=== PATIENT | female | born 1945 | race Caucasian/White ===

== ENCOUNTER → 2020-07-07 | Outpatient (CLI) | payer OTHER ==
[~2020-07-07] MED LIST: ASCO100018 PO; CETI-158 PO; CHOL500015 PO; CICL15CR3 TP; CLOB15OI TP; DABI150C PO; ESTR42.53 VG; EZET10TA70 PO; FENO48TA16 PO; GLUC1CAP18 PO; GLUC1TAB33 PO; LACT1CAP35 PO; LEVO125T PO; LISI-167 PO; MAX PO; METF10002 PO; METH500T5 PO; MULT-658 PO; NAPR-685 PO; VIT1CAPS42 PO; [UNRECOGNIZED DRUG - OTHER] PEG; [UNRECOGNIZED DRUG - OTHER] PO; [UNRECOGNIZED DRUG - OTHER] PO
== END | disposition home or self-care (01) ==
LOC: CVU 15:44
PROVIDERS: ATTEND Internal Medicine Interventional Cardiology
DX: I08.8 Other rheumatic multiple valve diseases (principal); I48.91 Unspecified atrial fibrillation; Z79.01 Long term (current) use of anticoagulants
CPT/HCPCS: 93306

== ENCOUNTER → 2020-08-17 | Outpatient (CLI) | payer OTHER ==
[~2020-08-17] MED LIST changes: +APIX5TAB PO; +CARV6.2512 PO; +LOSA50TA14 PO
== END | disposition home or self-care (01) ==
LOC: CFH 13:29
PROVIDERS: ATTEND Specialist
DX: Z12.31 Encounter for screening mammogram for malignant neoplasm of breast (principal)
CPT/HCPCS: 77067

== ENCOUNTER 2020-09-01 09:57 | Day surgery (SDC) | payer OTHER ==
[~2020-09-01] VITALS: Ht 163.8 cm; Wt 65.9 kg
[2020-09-01] MEDS ORDERED: SODIUM CHLORIDE 0.9% 1,000 ML IV SCH ×2 (10:30→12:30)
[2020-09-01] MEDS ORDERED: CRAN1CAP12 PO (10:36)
[2020-09-01] MEDS ORDERED: CHOL10003 PO (10:36)
[2020-09-01] MEDS ORDERED: CALC100T2 PO (10:36)
[2020-09-01] MEDS ORDERED: UBID100C41 PO (10:36)
[2020-09-01 10:41] VITALS: BP 129/72
[2020-09-01 10:56] LABS: BASOPHILS % (AUTO) 1 % (0-1); EOSINOPHILS % (AUTO) 5 % (1-7); LYMPHOCYTES % (AUTO) 20 % (22-44); MEAN CORPUSCULAR HEMOGLOBIN 30.6 pg (27.0-34.8); MEAN CORPUSCULAR HGB CONC 33.9 g/dL (32.4-35.8); MEAN PLATELET VOLUME 7.9 fL (7.4-10.4); MONOCYTES % (AUTO) 7 % (2-9); NEUTROPHILS % (AUTO) 68 % (42-75); PLATELET COUNT 235 x10^3/uL (130-400); RED BLOOD COUNT 3.89 x10^6/uL (3.82-5.3); RED CELL DISTRIBUTION WIDTH 15.2 % (9.6-15.2)
[2020-09-01 11:00] LABS: MD NO
[2020-09-01] MEDS ORDERED: PLEASE ENTER HEIGHT AND WEIGHT MC SCH (11:00)
[2020-09-01 11:07] LABS: ANION GAP 7 mmol/L (5-15); CALCIUM 8.5 mg/dL (8.5-10.1); CHLORIDE 104 mmol/L (98-107); CREATININE 0.53 mg/dL (0.55-1.02)
[2020-09-01] MEDS ORDERED: MIDAZOLAM 1 MG/ML, 5ML ONE (11:26)
[2020-09-01] MEDS ORDERED: TICAGRELOR 90 MG TABLET ONE (11:26)
[2020-09-01] MEDS ORDERED: FENTANYL PF 100 MCG/2ML ONE (11:26)
[2020-09-01] MEDS ORDERED: HEPARIN 1,000 UNITS/ML, 10ML ONE (11:27)
[2020-09-01] MEDS ORDERED: BIVALIRUDIN 250 MG ONE (11:27)
[2020-09-01] MEDS ORDERED: LIDOCAINE-MPF 1%, 5ML ONE (11:27)
[2020-09-01] MEDS ORDERED: VERAPAMIL 2.5 MG/ML, 2ML ONE (11:27)
[2020-09-01] MEDS ORDERED: NITROGLYCERIN 5 MG/ML, 10ML ONE (11:32)
== END 2020-09-01 14:42 | disposition home or self-care (01) ==
LOC: CACL 09:57
PROVIDERS: ATTEND Internal Medicine Cardiovascular Disease
DX: Z01.810 Encounter for preprocedural cardiovascular examination (principal); I35.0 Nonrheumatic aortic (valve) stenosis; I48.20 Chronic atrial fibrillation, unspecified; I10 Essential (primary) hypertension; E11.9 Type 2 diabetes mellitus without complications; E78.2 Mixed hyperlipidemia; F33.9 Major depressive disorder, recurrent, unspecified; Z79.01 Long term (current) use of anticoagulants; Z79.84 Long term (current) use of oral hypoglycemic drugs; Z79.890 Hormone replacement therapy; Z79.899 Other long term (current) drug therapy; Z88.8 Allergy status to other drugs, medicaments and biological substances
CPT/HCPCS: 36415; 80048; 85025; 93454; 99156; C1769; C1894; J1644; J2250; J3010; Q9967; J0583

== ENCOUNTER → 2020-09-09 | Outpatient (CLI) | payer OTHER ==
[~2020-09-09] MED LIST changes: +CALC100T2 PO; +CHOL10003 PO; +CRAN1CAP12 PO; +UBID100C41 PO; +VISIPAQUE 320 MG/ML, 150ML BOTTLE ONE
== END | disposition home or self-care (01) ==
LOC: RAD 09:28
PROVIDERS: ATTEND Internal Medicine Cardiovascular Disease
DX: I08.0 Rheumatic disorders of both mitral and aortic valves (principal); E11.69 Type 2 diabetes mellitus with other specified complication; E78.5 Hyperlipidemia, unspecified; R59.0 Localized enlarged lymph nodes; R91.8 Other nonspecific abnormal finding of lung field; I70.0 Atherosclerosis of aorta; N26.1 Atrophy of kidney (terminal)
CPT/HCPCS: 71275; 74174; Q9967

== ENCOUNTER 2020-09-14 07:59 | Inpatient (IN) | payer OTHER ==
[~2020-09-14] VITALS: Ht 162.6 cm; Wt 69.7 kg
[~2020-09-14 07:59] MED LIST changes: -VISIPAQUE 320 MG/ML, 150ML BOTTLE ONE
[2020-09-14] MEDS ORDERED: ASCO100018 PO (09:15)
[2020-09-14] MEDS ORDERED: PLEASE ENTER HEIGHT AND WEIGHT MC SCH (09:30)
[2020-09-14] MEDS ORDERED: ONDANSETRON 2MG/ML, 2ML IV PRN (09:30)
[2020-09-14 09:57] LABS: BASOPHILS % (AUTO) 1 % (0-1); EOSINOPHILS % (AUTO) 5 % (1-7); LYMPHOCYTES % (AUTO) 21 % (22-44); MEAN CORPUSCULAR HEMOGLOBIN 30.3 pg (27.0-34.8); MEAN CORPUSCULAR HGB CONC 33.5 g/dL (32.4-35.8); MEAN PLATELET VOLUME 8.2 fL (7.4-10.4); MONOCYTES % (AUTO) 7 % (2-9); NEUTROPHILS % (AUTO) 66 % (42-75); PLATELET COUNT 235 x10^3/uL (130-400); RED BLOOD COUNT 3.77 x10^6/uL (3.82-5.3); RED CELL DISTRIBUTION WIDTH 14.9 % (9.6-15.2)
[2020-09-14 09:58] LABS: MD NO
[2020-09-14 10:08] LABS: INTERNATIONAL NORMALIZED RATIO 1.03 (0.93-1.1)
[2020-09-14 10:09] LABS: ALANINE AMINOTRANSFERASE 37 U/L (12-78); ALBUMIN 3.6 g/dL (3.4-5.0); ANION GAP 5 mmol/L (5-15); CALCIUM 8.4 mg/dL (8.5-10.1); CHLORIDE 106 mmol/L (98-107); CREATININE 0.54 mg/dL (0.55-1.02)
[2020-09-14 10:11] LABS: ALKALINE PHOSPHATASE 71 U/L (45-117); BILIRUBIN,TOTAL 0.5 mg/dL (0.2-1.0); TOTAL PROTEIN 6.9 g/dL (6.4-8.2)
[2020-09-14] MEDS ORDERED: SODIUM CHLORIDE 0.9% 1,000 ML IV ONE (11:00)
[2020-09-14] MEDS ORDERED: PROTAMINE SULFATE 10 MG/ML, 5ML ONE (11:31)
[2020-09-14] MEDS ORDERED: ONDANSETRON 2MG/ML, 2ML ONE (11:34)
[2020-09-14] MEDS ORDERED: FENTANYL PF 250 MCG/5ML ONE (11:34)
[2020-09-14] MEDS ORDERED: CEFAZOLIN 1,000 MG ONE (11:34)
[2020-09-14] MEDS ORDERED: DEXAMETHASONE 4 MG/ML, 1ML ONE (11:34)
[2020-09-14] MEDS ORDERED: PHENYLEPHRINE 10 MG/ML ONE (11:38)
[2020-09-14] MEDS ORDERED: SUCCINYLCHOLINE 20 MG/ML, 10ML ONE (11:38)
[2020-09-14] MEDS ORDERED: ROCURONIUM 10 MG/ML,10ML ONE (11:38)
[2020-09-14] MEDS ORDERED: HEPARIN 1,000 UNITS/ML, 10ML ONE ×2 (12:19)
[2020-09-14] MEDS ORDERED: PROPOFOL 10 MG/ML, 20ML ONE (12:20)
[2020-09-14] MEDS ORDERED: NALOXONE 0.4 MG/ML, 1ML ONE (12:26)
[2020-09-14] MEDS ORDERED: hydrALAzine 20 MG/ML, 1ML ONE ×2 (13:12→13:56)
[2020-09-14] MEDS: hydrALAzine 20 MG/ML, 1ML IVPush PRN ×2 (13:16→14:01)
[2020-09-14 16:35] VITALS: BP 146/79
[2020-09-14] MEDS ORDERED: hydrALAzine 20 MG/ML, 1ML IV PRN (17:00)
[2020-09-14 17:08] VITALS: BP 145/73
[2020-09-14] MEDS: ACETAMINOPHEN 325 MG TABLET PO PRN (19:16)
[2020-09-14 20:04] VITALS: BP 103/64
[2020-09-14 21:09] VITALS: BP 118/65
[2020-09-14] MEDS: metFORMIN 500 MG TABLET PO SCH (21:13)
[2020-09-14] MEDS: APIXABAN 5 MG TABLET PO SCH (21:13)
[2020-09-14] MEDS: CARVEDILOL 12.5 MG TABLET PO SCH (21:14)
[2020-09-14] MEDS ORDERED: LOSARTAN 50MG TABLET PO SCH (21:30)
[2020-09-15 01:20] VITALS: BP 116/67
[2020-09-15 05:02] LABS: BASOPHILS % (AUTO) 0 % (0-1); EOSINOPHILS % (AUTO) 0 % (1-7); LYMPHOCYTES % (AUTO) 11 % (22-44); MEAN CORPUSCULAR HEMOGLOBIN 30.7 pg (27.0-34.8); MEAN CORPUSCULAR HGB CONC 33.4 g/dL (32.4-35.8); MEAN PLATELET VOLUME 8.1 fL (7.4-10.4); MONOCYTES % (AUTO) 8 % (2-9); NEUTROPHILS % (AUTO) 80 % (42-75); PLATELET COUNT 222 x10^3/uL (130-400); RED BLOOD COUNT 3.67 x10^6/uL (3.82-5.3)
[2020-09-15 05:10] LABS: ANION GAP 7 mmol/L (5-15); CALCIUM 7.8 mg/dL (8.5-10.1); CHLORIDE 106 mmol/L (98-107); CREATININE 0.61 mg/dL (0.55-1.02)
[2020-09-15 05:52] LABS: MD SCAN
[2020-09-15] MEDS ORDERED: LEVOTHYROXINE 88 MCG TABLET PO SCH (06:00)
[2020-09-15 08:36] VITALS: BP 152/77
[2020-09-15] MEDS ORDERED: EZETIMIBE 10 MG TABLET PO SCH (09:00)
[2020-09-15] MEDS ORDERED: LOSARTAN 50MG TABLET PO SCH (09:00)
[2020-09-15] MEDS: ACETAMINOPHEN 325 MG TABLET PO PRN (09:14)
[2020-09-15] MEDS: CARVEDILOL 12.5 MG TABLET PO SCH (09:14)
[2020-09-15] MEDS: metFORMIN 500 MG TABLET PO SCH (09:14)
[2020-09-15] MEDS: APIXABAN 5 MG TABLET PO SCH (09:14)
[2020-09-15] MEDS ORDERED: ACET325T26 PO (10:01)
[2020-09-15 13:17] VITALS: BP 131/69
[2020-09-15] MEDS ORDERED: metFORMIN 500 MG TABLET PO SCH (17:00)
== END 2020-09-15 16:45 | disposition home or self-care (01) | DRG 266 ==
LOC: ORIP 07:59 → 5SO 15:34 → DCLOUNGE 09-15 16:20
PROVIDERS: ADMIT Internal Medicine Cardiovascular Disease; ATTEND Internal Medicine Cardiovascular Disease
PROC: B24BZZ4 Ultrasonography of Heart with Aorta, Transesophageal (ICD-10-PCS; 2020-09-14)
PROC: B3101ZZ Fluoroscopy of Thoracic Aorta using Low Osmolar Contrast (ICD-10-PCS; 2020-09-14)
PROC: 5A1213Z Performance of Cardiac Pacing, Intermittent (ICD-10-PCS; 2020-09-14)
PROC: 02RF38Z Replacement of Aortic Valve with Zooplastic Tissue, Percutaneous Approach (ICD-10-PCS; principal; 2020-09-14 12:00)
DX: I35.0 Nonrheumatic aortic (valve) stenosis (principal); Z00.6 Encounter for examination for normal comparison and control in clinical research program; I50.33 Acute on chronic diastolic (congestive) heart failure; Z20.822 Contact with and (suspected) exposure to COVID-19; I48.91 Unspecified atrial fibrillation; Z79.899 Other long term (current) drug therapy
CPT/HCPCS: 33361; 36415; 76937; 80048; 80053; 85025; 85610; 86850; 86900; 86923; 87635; 93005; 93306; 93312; 93321; 93325; 93355; C1760; C1769; C1894; G0378; J0690; J1100; J1644; J2310; J2405; J2704; J2720; J3010; J0330; J0360; J2370; Q9967

== ENCOUNTER → 2020-10-15 | Outpatient (CLI) | payer OTHER ==
[~2020-10-15] MED LIST changes: +ACET325T26 PO
== END | disposition home or self-care (01) ==
LOC: CVU 10:29
PROVIDERS: ATTEND Internal Medicine Cardiovascular Disease
DX: Z01.810 Encounter for preprocedural cardiovascular examination (principal); I08.8 Other rheumatic multiple valve diseases; R06.02 Shortness of breath; I65.29 Occlusion and stenosis of unspecified carotid artery
CPT/HCPCS: 93306